=== PATIENT | female | born 1980 | race African-American/Black ===

== ENCOUNTER 2019-06-01 23:44 | Emergency (ER) | payer OTHER ==
[2019-06-02 00:30] VITALS: BP 146/83
== END 2019-06-02 00:41 | disposition home or self-care (01) ==
LOC: M ED 23:44
DX: F10.129 Alcohol abuse with intoxication, unspecified (principal); R05 Cough; F43.10 Post-traumatic stress disorder, unspecified; F17.218 Nicotine dependence, cigarettes, with other nicotine-induced disorders

== ENCOUNTER → 2019-09-12 | Outpatient (CLI) | payer OTHER ==
--- NOTE | 2019-09-19 14:35 | SLEEPCENT ---
DATE OF PROCEDURE: 09/12/2019 ORDERED BY: LOVE Christensen Nocturnal polysomnography was performed for evaluation of sleep physiology in this patient with a history of excessive somnolence, morning headaches, and nonrestorative sleep. 7 hours and 54 minutes of data were reviewed. There were 429.5 minutes of sleep identified. Sleep latency was normal at 4.5 minutes. REM latency was delayed at 147.5 minutes. Sleep architecture showed fragmentation and some poor progression. There were three REM cycles noted. Overall sleep efficiency was good at 91.7%. The electrocardiogram showed a sinus rhythm with an average heart rate of 90 beats per minute. Rate ranged 80-110. Electroencephalogram (EEG) showed fairly normal waveforms for awake and sleep. Some mild alpha intrusion was noted. There were 112 respiratory events identified of 10 seconds in duration or greater for an apnea-hypopnea index of 15.6. The events were obstructive not exclusive to sleep stage nor body posture. Arousals from respiratory events were seen 7.3 times per hour and oxygen desaturations were seen in the low 80s. There was some minor limb activity but remaining measures of sleep physiology were normal. IMPRESSION: Obstructive sleep apnea syndrome (G47.33). Apnea-hypopnea index 15.6. RECOMMENDATIONS: The patient should be encouraged to return to the sleep disorder center for pressure therapy. In the interim, alcohol and sedative avoidance should be practiced and caution exercised during the operation of motor vehicles.
== END ==
LOC: M SLEEP 20:00
PROVIDERS: ATTEND Physician Assistant
DX: G47.33 Obstructive sleep apnea (adult) (pediatric) (principal)

== ENCOUNTER → 2019-10-09 | Outpatient (CLI) | payer OTHER ==
--- NOTE | 2019-11-28 08:21 | SLEEPCENT ---
DATE: 10/09/2019 Nocturnal polysomnography was performed for the titration of pressure therapy in this patient with obstructive sleep apnea syndrome, apnea hypopnea index 15.6. For testing, the patient was fitted with a [employer] Nayeli View full face mask of small size, 4 cm of water pressure were applied to the circuit, and the lights were extinguished. Eight hours and six minutes of data were reviewed. There were 428 minutes of sleep identified. Sleep latency was prolonged at 31 minutes. REM latency was prolonged at 118 minutes. Sleep architecture was good with four REM cycles. Overall sleep efficiency was 89.2%. The patients electrocardiogram showed a sinus rhythm with an average heart rate of 81 beats per minute. EEG showed normal waveforms for wake and sleep. Respiratory events were fully palliated with CPAP at a pressure of +9. There was some minor limb activity and snoring earlier in the study. IMPRESSION: Obstructive sleep apnea syndrome (G47.33). RECOMMENDATION: Nightly use of pressure therapy 9 cm of water. ckd/hts Rafaela Yadav MD edited: 01/11/2020 1111 tkf MTDD
== END ==
LOC: M SLEEP 20:00
PROVIDERS: ATTEND Physician Assistant
DX: G47.33 Obstructive sleep apnea (adult) (pediatric) (principal)